=== PATIENT | male | born 1970 | race Caucasian/White ===

== ENCOUNTER 2020-06-19 13:45 | Inpatient (IN) | payer OTHER ==
[~2020-06-19] VITALS: Ht 177.8 cm; Wt 74.4 kg
[2020-06-19 19:37] LABS: HEMOGLOBIN 14.1 gm/dl (14.0-17.5); RED BLOOD COUNT 4.74 M/UL (4.20-5.50); WHITE BLOOD COUNT 6.8 K/UL (4.5-11.0)
[2020-06-19 20:12] LABS: BUN/CREATININE RATIO 25 (0-10)
[2020-06-19] MEDS ORDERED: BUPRENORPHIN-N1 EACH PO (21:20)
[2020-06-19] MEDS ORDERED: MOBIC15 MG PO (21:21)
[2020-06-19] MEDS ORDERED: FLECAINIDE ACET50 MG PO (21:22)
[2020-06-19] MEDS ORDERED: VOLTAREN ARTHRI20 GM TOP (21:24)
[2020-06-19] MEDS ORDERED: TESTOSTERONE 1.62% TOP (21:27)
[2020-06-19] MEDS ORDERED: CYANOCOBAL1000 MCG/1 INJ (21:29)
[2020-06-19] MEDS ORDERED: VENTOLIN HFA 66.7 GM INH (21:30)
[2020-06-20 07:49] LABS: HEMOGLOBIN 13.6 gm/dl (14.0-17.5); RED BLOOD COUNT 4.62 M/UL (4.20-5.50); WHITE BLOOD COUNT 6.2 K/UL (4.5-11.0)
[2020-06-20 07:50] LABS: BUN/CREATININE RATIO 21 (0-10)
[2020-06-20] MEDS ORDERED: ATORVASTATIN CA20 MG PO (16:10)
--- NOTE | 2020-06-20 23:28 | NUR ---
HEART CATH SITE ASSESSED AT BEGINNING OF SHIFT. SITE IS COVERED WITH TRANSPARENT DRSG WITH SCANT AMOUNT OF DRIED BLOOD. TR BAND REMOVED PRIOR TO BEGINNING OF SHIFT. NO HEMATOMA. PATIENT HAD NO COMPLAINTS. BED LOCKED AND IN LOWEST POSITION. CALL LIGHT WITHIN REACH.
== END 2020-06-21 10:20 | disposition home or self-care (01) | DRG 287 ==
LOC: PROG CARE 18:41
PROVIDERS: ADMIT Internal Medicine
PROC: 4A023N7 Measurement of Cardiac Sampling and Pressure, Left Heart, Percutaneous Approach (ICD-10-PCS; principal; 2020-06-20)
PROC: B211YZZ Fluoroscopy of Multiple Coronary Arteries using Other Contrast (ICD-10-PCS; 2020-06-20)
DX: I47.2 Ventricular tachycardia (principal); F11.20 Opioid dependence, uncomplicated; I20.0 Unstable angina; F17.210 Nicotine dependence, cigarettes, uncomplicated; E78.5 Hyperlipidemia, unspecified; R06.02 Shortness of breath; I49.3 Ventricular premature depolarization; Z88.0 Allergy status to penicillin; R00.2 Palpitations; Z88.2 Allergy status to sulfonamides; Z88.8 Allergy status to other drugs, medicaments and biological substances; Z79.899 Other long term (current) drug therapy; Z20.822 Contact with and (suspected) exposure to COVID-19
CPT/HCPCS: ECHO; 36415; 71045; 80053; 82550; 82553; 83735; 84100; 84132; 84439; 84443; 84484; 85025; 85730; 93005; 93306; 99152; C1769; C1894; J0461; J1644; J1650; J2250; J3010; J3475; Q9967

== ENCOUNTER 2020-06-22 20:06 | Inpatient (IN) | payer OTHER ==
[~2020-06-22] VITALS: Ht 177.8 cm; Wt 75.4 kg
[~2020-06-22 20:06] MED LIST: ATORVASTATIN CA20 MG PO; BUPRENORPHIN-N1 EACH PO; CYANOCOBAL1000 MCG/1 INJ; FLECAINIDE ACET50 MG PO; MOBIC15 MG PO; TESTOSTERONE 1.62% TOP; VENTOLIN HFA 66.7 GM INH; VOLTAREN ARTHRI20 GM TOP
[2020-06-23 03:11] LABS: BUN/CREATININE RATIO 26 (0-10)
[2020-06-24 02:11] LABS: RED BLOOD COUNT 5.35 M/UL (4.20-5.50)
[2020-06-24 02:31] LABS: BUN/CREATININE RATIO 31 (0-10)
--- NOTE | 2020-06-24 10:01 | NUR ---
WHEN OR CAME TO GET PATIENT HE WAS STABLE. AFTER GETTING UP AND MOVING TO THE STRETCHER HE WENT INTO SVT. PT WENT BACK INTO NORMAL SINUS RHYTHM BEFORE LEAVING. NO SHOCK WAS NEEDED.
[2020-06-25 03:01] LABS: HEMOGLOBIN 15.8 gm/dl (14.0-17.5); RED BLOOD COUNT 5.18 M/UL (4.20-5.50); WHITE BLOOD COUNT 6.7 K/UL (4.5-11.0)
[2020-06-25 03:31] LABS: BUN/CREATININE RATIO 31 (0-10)
[2020-06-25] MEDS ORDERED: BETAPACE 80MG T80 MG PO (14:26)
[2020-06-25] MEDS ORDERED: HYDROCODON-ACE1 EAC4 PO (14:26)
== END 2020-06-25 18:10 | disposition home or self-care (01) | DRG 227 ==
LOC: PROG CARE 21:18
PROVIDERS: Internal Medicine; ADMIT Internal Medicine
PROC: 0JH608Z Insertion of Defibrillator Generator into Chest Subcutaneous Tissue and Fascia, Open Approach (ICD-10-PCS; principal; 2020-06-24)
PROC: 02HK3KZ Insertion of Defibrillator Lead into Right Ventricle, Percutaneous Approach (ICD-10-PCS; 2020-06-24)
PROC: 02H63KZ Insertion of Defibrillator Lead into Right Atrium, Percutaneous Approach (ICD-10-PCS; 2020-06-24)
DX: I49.01 Ventricular fibrillation (principal); F11.20 Opioid dependence, uncomplicated; I49.5 Sick sinus syndrome; R00.1 Bradycardia, unspecified; I49.9 Cardiac arrhythmia, unspecified; E78.5 Hyperlipidemia, unspecified; F17.210 Nicotine dependence, cigarettes, uncomplicated; Z79.899 Other long term (current) drug therapy
CPT/HCPCS: 33249; 36415; 71045; 80048; 80053; 82550; 82553; 83735; 84484; 85025; 87635; 92960; 93005; 93609; 93621; 93623; 93641; 96372; 99152; 99153; C1721; C1730; C1733; C1766; C1777; C1898; G0378; G0379; J1200; J1644; J1650; J1742; J2250; J3010; J3370; J3475; J3480; J7040; J7050; J7070

== ENCOUNTER 2020-09-07 18:11 | Inpatient (IN) | payer OTHER ==
[~2020-09-07] VITALS: Ht 177.8 cm; Wt 72.6 kg
[~2020-09-07 18:11] MED LIST changes: +BETAPACE 80MG T80 MG PO; +HYDROCODON-ACE1 EAC4 PO
[2020-09-07 21:19] LABS: HEMOGLOBIN 12.8 gm/dl (14.0-17.5); RED BLOOD COUNT 4.1 M/UL (4.20-5.50); WHITE BLOOD COUNT 11.9 K/UL (4.5-11.0)
[2020-09-07 21:54] LABS: BUN/CREATININE RATIO 19 (0-10)
[2020-09-08] MEDS ORDERED: CLEOCIN HCL300 MG PO (03:10)
[2020-09-08 18:03] LABS: HEMOGLOBIN 11.9 gm/dl (14.0-17.5); RED BLOOD COUNT 3.88 M/UL (4.20-5.50); WHITE BLOOD COUNT 9.8 K/UL (4.5-11.0)
[2020-09-09 05:26] LABS: HEMOGLOBIN 11.4 gm/dl (14.0-17.5); RED BLOOD COUNT 3.73 M/UL (4.20-5.50)
[2020-09-09 05:50] LABS: BUN/CREATININE RATIO 7 (0-10)
[2020-09-10 06:40] LABS: HEMOGLOBIN 11.7 gm/dl (14.0-17.5); RED BLOOD COUNT 3.85 M/UL (4.20-5.50); WHITE BLOOD COUNT 7.5 K/UL (4.5-11.0)
[2020-09-10 06:56] LABS: BUN/CREATININE RATIO 11 (0-10)
[2020-09-11 03:36] LABS: HEMOGLOBIN 11.4 gm/dl (14.0-17.5); RED BLOOD COUNT 3.72 M/UL (4.20-5.50); WHITE BLOOD COUNT 7.7 K/UL (4.5-11.0)
[2020-09-11 04:00] LABS: BUN/CREATININE RATIO 10 (0-10)
[2020-09-13 03:31] LABS: HEMOGLOBIN 11.8 gm/dl (14.0-17.5); RED BLOOD COUNT 3.89 M/UL (4.20-5.50); WHITE BLOOD COUNT 7.4 K/UL (4.5-11.0)
[2020-09-13 08:00] LABS: BUN/CREATININE RATIO 11 (0-10)
[2020-09-14 04:22] LABS: HEMOGLOBIN 11.8 gm/dl (14.0-17.5); RED BLOOD COUNT 3.86 M/UL (4.20-5.50); WHITE BLOOD COUNT 7.6 K/UL (4.5-11.0)
[2020-09-14 04:56] LABS: BUN/CREATININE RATIO 12 (0-10)
[2020-09-15 04:35] LABS: HEMOGLOBIN 11.9 gm/dl (14.0-17.5); RED BLOOD COUNT 3.88 M/UL (4.20-5.50); WHITE BLOOD COUNT 8.9 K/UL (4.5-11.0)
[2020-09-15 05:02] LABS: BUN/CREATININE RATIO 13 (0-10)
[2020-09-16 04:09] LABS: HEMOGLOBIN 11.7 gm/dl (14.0-17.5); RED BLOOD COUNT 3.83 M/UL (4.20-5.50); WHITE BLOOD COUNT 8.4 K/UL (4.5-11.0)
[2020-09-16 04:32] LABS: BUN/CREATININE RATIO 14 (0-10)
[2020-09-17 04:45] LABS: HEMOGLOBIN 11.6 gm/dl (14.0-17.5); RED BLOOD COUNT 3.82 M/UL (4.20-5.50)
[2020-09-17 04:49] LABS: WHITE BLOOD COUNT 13.9 K/UL (4.5-11.0)
[2020-09-17 05:19] LABS: BUN/CREATININE RATIO 14 (0-10)
[2020-09-18 04:24] LABS: RED BLOOD COUNT 3.56 M/UL (4.20-5.50); WHITE BLOOD COUNT 12.1 K/UL (4.5-11.0)
[2020-09-18 04:43] LABS: BUN/CREATININE RATIO 15 (0-10)
[2020-09-19 05:28] LABS: HEMOGLOBIN 10.3 gm/dl (14.0-17.5); RED BLOOD COUNT 3.37 M/UL (4.20-5.50); WHITE BLOOD COUNT 9.1 K/UL (4.5-11.0)
[2020-09-19 05:52] LABS: BUN/CREATININE RATIO 14 (0-10)
[2020-09-20 03:50] LABS: HEMOGLOBIN 10.4 gm/dl (14.0-17.5); RED BLOOD COUNT 3.47 M/UL (4.20-5.50)
[2020-09-20 04:09] LABS: BUN/CREATININE RATIO 14 (0-10)
--- NOTE | 2020-09-20 12:58 | NUR ---
DISCUSSED WITH DR BABB ABOUT BEING UNABLE TO GIVE PT SOTOLOL DUE TO LOW BP AND LOW HR. MD CALLED MARCOS LÓPEZ TO DISCUSS MED DOSAGE CHANGED TO AVOID WORSENING BRADYCARDIA AND HYPOTENSION BUT ALSO TO KEEP PT HEART RHTHYM STABLE
[2020-09-21 03:09] LABS: HEMOGLOBIN 10.3 gm/dl (14.0-17.5); RED BLOOD COUNT 3.38 M/UL (4.20-5.50); WHITE BLOOD COUNT 7.2 K/UL (4.5-11.0)
[2020-09-21 03:34] LABS: BUN/CREATININE RATIO 11 (0-10)
[2020-09-22 06:13] LABS: HEMOGLOBIN 10.7 gm/dl (14.0-17.5); RED BLOOD COUNT 3.53 M/UL (4.20-5.50); WHITE BLOOD COUNT 7.2 K/UL (4.5-11.0)
[2020-09-22 06:44] LABS: BUN/CREATININE RATIO 13 (0-10)
--- NOTE | 2020-09-23 09:11 | NUR ---
PATIENT CONTINUES TO BE BRADYCARDIC DURING PERIODS OF REST. RN PLACED STRIP PRINTED OFF BY TELEMETRY IN PATIENT CHART AND MADE MD SANTOS AWARE. MD ENCOURAGED RN TO CONTINUE SOTOLAL ADMINISTRATION PER ORDER.
[2020-09-24] MEDS ORDERED: VANCOMYCIN750 MG/151 IV (14:00)
--- NOTE | 2020-09-24 23:26 | NUR ---
learning services coordinator called with status update of patient condition at this time. informed still awaiting bed assignment.
--- NOTE | 2020-09-25 13:12 | NUR ---
[facility] CALLED THIS AM TO GET STATIS UPDATE AND VITALS ON PATIENT. STATED DEPENDING IN [facility] IT MIGHT BE LATE THIS PM BEFORE A ROOM WAS AVAILABLE.
== END 2020-09-25 21:57 | disposition short-term general hospital (02) | DRG 261 ==
LOC: ER1 18:11 → CDU 22:50 → MED SURG 4 22:50
PROVIDERS: Internal Medicine; Physician Assistant; ADMIT Internal Medicine
PROC: 0JPT0PZ Removal of Cardiac Rhythm Related Device from Trunk Subcutaneous Tissue and Fascia, Open Approach (ICD-10-PCS; principal; 2020-09-16)
PROC: 02PA3MZ Removal of Cardiac Lead from Heart, Percutaneous Approach (ICD-10-PCS; 2020-09-16)
DX: T82.897A Other specified complication of cardiac prosthetic devices, implants and grafts, initial encounter (principal); L03.313 Cellulitis of chest wall; I47.1 Supraventricular tachycardia; F11.20 Opioid dependence, uncomplicated; Z20.822 Contact with and (suspected) exposure to COVID-19; B95.62 Methicillin resistant Staphylococcus aureus infection as the cause of diseases classified elsewhere; I49.5 Sick sinus syndrome; I25.10 Atherosclerotic heart disease of native coronary artery without angina pectoris; E78.5 Hyperlipidemia, unspecified; F17.210 Nicotine dependence, cigarettes, uncomplicated; J44.9 Chronic obstructive pulmonary disease, unspecified; Z88.0 Allergy status to penicillin; Z88.2 Allergy status to sulfonamides; Z88.8 Allergy status to other drugs, medicaments and biological substances; Z82.49 Family history of ischemic heart disease and other diseases of the circulatory system
CPT/HCPCS: 33235; 33241; 36415; 71045; 80048; 80053; 80202; 82550; 82553; 83605; 83735; 84100; 84484; 85025; 85027; 85610; 85652; 85730; 86140; 87040; 87070; 87077; 87186; 87205; 93005; 94640; 94664; 94760; 96365; 96366; 99152; 99153; 99285; J0878; J1200; J1644; J1885; J2250; J2270; J3010; J3370; J7030; J7040; J7050; J7070; U0002